=== PATIENT | female | born 1970 | race Caucasian/White ===

== ENCOUNTER → 2018-10-12 | Day surgery (SDC) | payer BC, OTHER ==
[~2018-10-12] MED LIST: LIDOCAINE 2% MDV (20MG/ML) 20ML VIAL IV ONE; PROPOFOL 10 MG/ML VIAL IV ONE
--- NOTE | 2018-11-07 09:00 | Operative Note ---
DATE OF SURGERY: 09/23/2018 SURGEON: Lenin Monzon MD OPERATION: COLONOSCOPY. INDICATIONS: This is a 48-year-old female with average risk for colorectal cancer who presented for screening colonoscopy. POSTOPERATIVE DIAGNOSES: 1. A 5 mm transverse colon polyp that was removed by cold snare. 2. Otherwise normal colon and terminal ileal mucosa. ANESTHESIA: Sedation is per Anesthesia. Pulse oximetry was monitored throughout the procedure to maintain O2 saturation of 90% or greater. Supplemental oxygen was administered via nasal cannula. Cardiac and vital signs were monitored throughout the duration of the procedure, and they were stable. The procedure of colonoscopy and risks and alternatives of the procedure, including the risk of bleeding and perforation, among others, were explained to the patient who voiced understanding and agreed to have the procedure done. Physical examination was performed, and the patient was found stable for sedation. PROCEDURE: The patient was placed in the left lateral position. Sedation was initiated. A digital rectal exam was performed and showed some mild external hemorrhoids with no palpable rectal masses. An Olympus PCF-180AL colonoscope was then inserted into the rectum under direct visualization. It was advanced to the cecum without difficulty. The ileocecal valve and appendiceal orifice were identified and photographed. The colonic mucosa was carefully examined upon introduction of the colonoscope. There were no lesions noted. The ileocecal valve was intubated and terminal ileal mucosa was inspected for about 8 cm and it appeared normal. The colonoscope was then withdrawn while carefully examining the colonic mucosal surfaces. The cecum and ascending colon appeared normal. In the transverse colon was a 5 mm sessile polyp that was noted and was removed by cold snare. The rest of the transverse colon, descending colon, and sigmoid colon mucosa revealed no other lesions. In the rectum. Retroflexion was performed and grade 1 internal hemorrhoids were noted. The colonoscope was then withdrawn and the procedure was terminated. The patient tolerated the procedure well without any immediate complications. The patient remained with stable vital signs and was transferred to the recovery room. RECOMMENDATIONS: 1. The patient should be on a high-fiber diet. 2. The patient is to have a repeat colonoscopy for surveillance in 5 or 10 years depending on the histology of the polyp. Thank you for allowing me to participate in the care of your patient. CC: Dr. Edson WATT
== END | disposition home or self-care (01) ==
LOC: HOP 11:42
PROVIDERS: ATTEND Internal Medicine Gastroenterology
DX: Z12.11 Encounter for screening for malignant neoplasm of colon (principal); D12.3 Benign neoplasm of transverse colon

== ENCOUNTER 2018-12-05 07:37 | Emergency (ER) | payer OTHER ==
[2018-12-05] MEDS ORDERED: KETOROLAC 60 MG/2 ML VIAL IM STA (07:51)
[2018-12-05] MEDS ORDERED: PREDNISONE 20 MG TAB PO ONE (07:51)
--- NOTE | 2018-12-05 07:53 | Emergency Department Record ---
History of Present Illness - General Chief Complaint: Ankle/Foot Injury Stated Complaint: LEFT FOOT PAIN Time Seen by Provider: 12/05/18 07:51 Source: Patient, RN notes reviewed Mode of Arrival: Ambulatory - History of Present Illness Initial Comments: pain in toes 6 days ago and she saw her PCP and her uric acid 4.6 and she denies trauma and the pain radites into her foot and ankle from the toes. patient told not to use NSAID because of gastric surgery to loss weight not allergic to NSAID Onset/Timin -: Week(s) Improves With: Nothing Worsens With: Movement, Palpation, Weight bearing Context: Other Associated Symptoms: Able to partially bear weight Treatments Prior to Arrival: Other - Related Data Previous Rx's Medication Instructions Recorded Tramadol HCl [Ultram] 50 mg PO Q6H PRN #10 tab 04/07/15 Prednisone [Prednisone 10Mg] 10 mg PO ASDIR #30 tab 12/05/18 Allergies Allergy/AdvReac Type Severity Reaction Status Date / Time acetaminophen [From Vicodin] Allergy VOMITING Verified 12/05/18 07:43 codeine Allergy RASH Verified 12/05/18 07:43 hydrocodone bitartrate Allergy VOMITING Verified 12/05/18 07:43 [From Vicodin] oxycodone HCl [From Percocet] Allergy RASH Verified 12/05/18 07:43 NSAIDS (Non-Steroidal AdvReac PT UNSURE Verified 12/05/18 07:43 Anti-Inflamma OF REACTION Travel Screening - Travel/Exposure Within Last 30 Days Have you traveled within the last 30 days?: No - Travel/Exposure Within Last Year Have you traveled outside the [place] in the last year?: No - Additonal Travel Details Have you been exposed to anyone with a communicable illness?: No - Travel Symptoms Symptom Screening: None Review of Systems Reviewed: No additional complaints except as noted below Constitutional: Reports: As per HPI. Denies: Chills, Fever, Malaise, Night sweats, Weakness, Weight change Eyes: Reports: As per HPI. Denies: Eye discharge, Eye pain, Photophobia, Vision change ENT: Reports: As per HPI. Denies: Congestion, Dental pain, Ear pain, Epistaxis , Hearing loss, Throat pain Respiratory: Reports: As per HPI. Denies: Cough, Dyspnea, Hemoptysis, Stridor, Wheezes Cardiovascular: Reports: As per HPI. Denies: Arrhythmia, Chest pain, Dyspnea on exertion, Edema, Murmurs, Orthopnea, Palpitations, Paroxysmal nocturnal dyspnea, Rheumatic Fever, Syncope Endocrine: Reports: As per HPI. Denies: Fatigue, Heat or cold intolerance, Polydipsia, Polyuria Gastrointestinal: Reports: As per HPI. Denies: Abdominal pain, Constipation, Diarrhea, Hematemesis, Hematochezia, Melena, Nausea, Vomiting Genitourinary: Reports: As per HPI. Denies: Abnormal menses, Discharge, Dyspareunia, Dysuria, Frequency, Hematuria, Incontinence, Retention, Urgency Musculoskeletal: Reports: As per HPI, Arthralgia (3rd and 4th toe pain worse with motion of her toes). Denies: Back pain, Gout, Joint swelling, Myalgia, Neck pain Skin: Reports: As per HPI. Denies: Bruising, Change in color, Change in hair/ nails, Lesions, Pruritus, Rash Neurological: Reports: As per HPI. Denies: Abnormal gait, Confusion, Headache, Numbness, Paresthesias, Seizure, Tingling, Tremors, Vertigo, Weakness Psychiatric: Reports: As per HPI. Denies: Anxiety, Auditory hallucinations, Depression, Homicidal thoughts, Suicidal thoughts, Visual hallucinations Hematological/Lymphatic: Reports: As per HPI. Denies: Anemia, Blood Clots, Easy bleeding, Easy bruising, Swollen glands Past Medical History - SOCIAL HISTORY Smoking Status: Never smoker Alcohol Use: Occasional Drug Use: None - RESPIRATORY Hx Respiratory Disorders: Yes Hx Asthma: Yes - CARDIOVASCULAR Hx Cardio Disorders: No - NEURO Hx Neuro Disorders: No - GI Hx GI Disorders: Yes Hx Abdominal Pain: No Hx Crohn's Disease: No Hx Diverticulitis: No Hx Hiatal Hernia: No Hx Irritable Bowel: No Hx Liver Disease: No Hx Pancreatitis: Yes Hx Ulcer: No - Hx Genitourinary Disorders: No - ENDOCRINE Hx Endocrine Disorders: No - MUSCULOSKELETAL Hx Musculoskeletal Disorders: No - PSYCH Hx Psych Problems: Yes Hx Anxiety: Yes Hx Depression: Yes - HEMATOLOGY/ONCOLOGY Hx Hematology/Oncology Disorders: Yes Hx Anemia: Yes Hx Cancer: No Hx Blood Transfusions: Yes Family Medical History Any Significant Family History?: No Physical Exam - General General Appearance: Alert, Oriented x3, Cooperative, Mild distress - Head Head exam: Normal inspection - Eye Eye exam: Normal appearance, PERRL Pupils: Normal accommodation - ENT ENT exam: Normal exam, Mucous membranes moist, Normal external ear exam, Normal orophraynx, TM's normal bilaterally Ear exam: Normal external inspection. negative: External canal tenderness Nasal Exam: Normal inspection. negative: Discharge, Sinus tenderness Mouth exam: Normal external inspection, Tongue normal Teeth exam: Normal inspection. negative: Dental caries Throat exam: Normal inspection. negative: Tonsillar erythema, Tonsillar exudate - Neck Neck exam: Normal inspection, Full ROM. negative: Tenderness - Respiratory Respiratory exam: Normal lung sounds bilaterally. negative: Respiratory distress - Cardiovascular Cardiovascular Exam: Regular rate, Normal rhythm, Normal heart sounds - GI/Abdominal GI/Abdominal exam: Soft, Normal bowel sounds. negative: Tenderness - Rectal Rectal exam: Deferred - exam: Deferred - Extremities Extremities exam: Normal inspection, Normal capillary refill, Tenderness (3rd and 4th toe pain in the mp joint area) - Back Back exam: Reports: Normal inspection, Full ROM. Denies: Muscle spasm, Rash noted, Tenderness - Neurological Neurological exam: Alert, Normal gait, Oriented X3, Reflexes normal - Psychiatric Psychiatric exam: Normal affect, Normal mood - Skin Skin exam: Dry, Intact, Normal color, Warm Course Vital Signs 12/05/18 07:44 Temperature 97.7 F Pulse Rate 86 Respiratory 20 Rate Blood Pressure 122/86 Pulse Ox 100 - Reevaluation(s) Reevaluation #1: feeling some better 12/05/18 08:15 Medical Decision Making - Data Complexity MDM Data: X-Ray Ordered and/or Reviewed (no fractures seen) Disposition Clinical Impression: Toe pain, left Osteoarthritis Qualifiers: Osteoarthritis location: foot Osteoarthritis type: primary Laterality: left Qualified Code(s): M19.072 - Primary osteoarthritis, left ankle and foot Disposition: Home, Self-Care Condition: (1) Good Instructions: Arthralgia (ED) Additional Instructions: follow up with artist's representative and pcp as scheduled take prednisone taper from 40 mg for 3 days than 30 mg for 3 days than 20 mgs for 3 days and than 10mg for 3 days Prescriptions: Prednisone [Prednisone 10Mg] 10 mg PO ASDIR #30 tab Forms: Patient Portal Access Time of Disposition: 08:03 Quality - Quality Measures Quality Measures: N/A - Blood Pressure Screening Does Patient Have Any of the Following: No Blood Pressure Classification: Pre-Hypertensive BP Reading Systolic Measurement: 122 Diastolic Measurement: 86 Screening for High Blood Pressure: < Pre-Hypertensive BP, F/U Documented > [ [id number]] Pre-Hypertensive Follow-up Interventions: Referral to alternative/primary care provider.
--- NOTE | 2018-12-06 13:46 | RADIOLOGY REPORT ---
EXAM: LEFT FOOT HISTORY: LEFT FOOT PAIN FOR A COUPLE OF DAYS. NO KNOWN INJURY. HISTORY OF PLANTAR FASCITIS. TECHNIQUE: Three views of the left foot were obtained. Comparison: None. FINDINGS: No acute fracture is seen. No evidence of dislocation. Corticated fragment adjacent to the proximal medial navicular, likely an accessory navicular. Prominent calcaneal, plantar and Achilles enthesophytes,/heel spurs. Mild first metatarsal phalangeal joint arthrosis. IMPRESSION: ABOVE. JOB NUMBER: [id number] [facility]
== END 2018-12-05 08:26 | disposition home or self-care (01) ==
LOC: ER 07:37
DX: M19.072 Primary osteoarthritis, left ankle and foot (principal)
CPT/HCPCS: 29425; 99283; 96372; 99284; 73630; J7512; J1885